=== PATIENT | male | born 1980 | race Caucasian/White ===

== ENCOUNTER 2018-12-19 12:08 | Emergency (ER) | payer BC ==
[2018-12-19] MEDS: HYDROmorphONE 2 MG/ML SYG IM (13:16)
[2018-12-19] MEDS: predniSONE 20 MG TAB PO (13:16)
[2018-12-19] MEDS: ONDANSETRON (ODT) 4 MG TAB ODT (13:16)
== END 2018-12-19 14:29 | disposition home or self-care (01) ==
LOC: FTE 12:08
DX: M54.42 Lumbago with sciatica, left side (principal); M51.26 Other intervertebral disc displacement, lumbar region
CPT/HCPCS: 72131; 96372; 99285-25